=== PATIENT | male | born 1970 | race Caucasian/White ===

== ENCOUNTER 2020-01-07 06:58 | Day surgery (SDC) | payer OTHER ==
[~2020-01-07] VITALS: Ht 185.4 cm; Wt 129.6 kg
[~2020-01-07 06:58] MED LIST: CENTRUM SILVER1 EAC2 PO; LOSA50 PO; MICROZIDE12.5 M1 PO; Percocet 5-3251 EACH PO; TAMS.4ER PO
--- NOTE | 2020-01-07 08:01 | NUR ---
Ambulatory in Day Surgery History, Chart, Medications and Allergies reviewed before start of procedure.Patient confirms NPO status and agrees with scheduled surgery. Patient reports completing Chlorhexadine shower X2 prior to admission to hospital.Lungs clear T/O to Auscultation. Patient States Post-Procedure ride home has been arranged WITH .
--- NOTE | 2020-01-07 09:13 | NUR ---
REPORT GIVEN TO SERGIO REYNAGA
--- NOTE | 2020-01-07 12:06 | NUR ---
DR MCKEON AT BEDSIDE WORKING WITH WOUND VAC. PT TOLERATING PO FLUIDS WELL, DENIES PAIN.
--- NOTE | 2020-01-07 12:28 | NUR ---
Discharge instructions reviewed with patient. Patient verbalizes understanding. Copy given to patient to take home. PER DR MCKEON PT WILL GO TO OFFICE ON TUESDAY. OFFICE TO CALL PT. Discharged via wheelchair to private car for ride home. DRG TO LEFT THIGH C/D/I. PT DENIES PAIN. DRESSED WITH ASSIST FROM . Discharged via wheelchair to private car for ride home.
== END 2020-01-07 12:29 | disposition home or self-care (01) ==
LOC: ORSCMMR 06:58 → ORD 08:30 → ORSCMMR 08:30
PROVIDERS: Surgery
PROC: 0HREX74 Replacement of Left Lower Arm Skin with Autologous Tissue Substitute, Partial Thickness, External Approach (ICD-10-PCS; principal; 2020-01-07 08:30)
DX: C43.62 Malignant melanoma of left upper limb, including shoulder (principal); I10 Essential (primary) hypertension; K21.9 Gastro-esophageal reflux disease without esophagitis; E66.01 Morbid (severe) obesity due to excess calories; Z68.37 Body mass index [BMI] 37.0-37.9, adult; Z79.899 Other long term (current) drug therapy
CPT/HCPCS: J0690; J1100; J1885; J2250; J2405; J2704; J3010; J7120

== ENCOUNTER 2020-11-10 06:12 | Day surgery (SDC) | payer OTHER ==
[~2020-11-10] VITALS: Ht 185.4 cm; Wt 136.9 kg
[~2020-11-10 06:12] MED LIST changes: +Acerola C500 MG PO; +DEPO-TESTO200 MG/1 M IM; +FISH OIL PO; +VITAMIN D310 MC4 PO
--- NOTE | 2020-11-10 09:50 | NUR ---
Discharge instructions reviewed with patient. Patient verbalizes understanding. Copy given to patient to take home. Patient States Post-Procedure ride home has been arranged. Discharged via wheelchair to private car for ride home. PT GIVEN DC INSTRUCTIONS AND WRITTEN RX FOR NORCO 5/325 #10 PT DENIES NEEDING ANYTHING FOR PAIN AT THIS TIME
== END 2020-11-10 22:52 | disposition home or self-care (01) ==
LOC: ORSCMMR 06:12 → ORD 07:30 → ORSCMMR 07:30
PROVIDERS: Surgery
PROC: 0WUF0JZ Supplement Abdominal Wall with Synthetic Substitute, Open Approach (ICD-10-PCS; principal; 2020-11-10 07:30)
DX: K42.9 Umbilical hernia without obstruction or gangrene (principal); K21.9 Gastro-esophageal reflux disease without esophagitis; E66.01 Morbid (severe) obesity due to excess calories; Z68.39 Body mass index [BMI] 39.0-39.9, adult; I10 Essential (primary) hypertension; Z79.899 Other long term (current) drug therapy
CPT/HCPCS: C1781; J0461; J0690; J1100; J2250; J2370; J2405; J2704; J3010; J7120

== ENCOUNTER → 2021-02-24 | Outpatient (CLI) | payer OTHER | END | disposition home or self-care (01) | LOC: LAB 11:44 → LAB SHORT 11:44 | DX: D48.5 Neoplasm of uncertain behavior of skin (principal) | CPT/HCPCS: 88305 ==

== ENCOUNTER 2021-08-13 09:19 | Emergency (ER) | payer OTHER ==
[~2021-08-13] VITALS: Ht 185.4 cm; Wt 139.7 kg
[2021-08-13 11:10] LABS: BASOPHILS ABSOLUTE AUTO 0.05 K/mm3 (0.00-0.23); BASOPHILS PERCENT AUTO 1 % (0-2); EOSINOPHILS ABSOLUTE AUTO 0.05 K/mm3 (0.00-0.68); EOSINOPHILS PERCENT AUTO 1 % (0-6); Hematocrit 48.7 % (37.0-53.0); Hemoglobin 17.4 g/dL (13.5-17.5); IMMATURE GRAN ABSOLUTE AUTO 0.03 K/mm3 (0.00-0.10); IMMATURE GRAN PERCENT AUTO 0 % (0-1); LYMPHOCYTES ABSOLUTE AUTO 1.21 K/mm3 (0.84-5.20); LYMPHOCYTES PERCENT AUTO 14 % (21-46); MONOCYTES ABSOLUTE AUTO 0.77 K/mm3 (0.16-1.47); MONOCYTES PERCENT AUTO 9 % (4-13); Mean Corpuscular HGB 29.8 pg (26.0-34.0); Mean Corpuscular HGB Conc 35.7 g/dL (31.5-36.5); Mean Corpuscular Volume 84 fL (80-100); Mean Platelet Volume 10.8 fL (9.1-12.4); NEUTROPHILS ABSOLUTE AUTO 6.69 K/mm3 (1.96-9.15); NEUTROPHILS PERCENT AUTO 76 % (41-73); Platelet Count 253 K/mm3 (150-400); RDW Coefficient Variation 13.5 % (11.7-14.2); RDW Standard Deviation 40.9 fL (35.1-46.3); Red Blood Cell Count 5.83 M/mm3 (4.30-5.90)
[2021-08-13 11:23] LABS: Alanine Aminotransfer (ALT/SGP 20 U/L (12-78); Albumin, Blood 3.7 g/dL (3.4-5.0); Albumin/Globulin Ratio 1.3 (0.8-1.8); Alk Phos 36 U/L (50-136); Anion Gap 7 mmol/L (6-16); Aspartate Aminotrans (AST/SGOT 22 U/L (12-37); Bilirubin, Total 0.8 mg/dL (0.1-1.0); Blood Urea Nitrogen 14 mg/dL (8-24); Bun/Creatinine Ratio 13.1 (12.0-20.0); CO2, Blood 26 mmol/L (21-32); Calcium, Blood 8.4 mg/dL (8.5-10.1); Chloride, Blood 106 mmol/L (98-108); Creatinine, Blood 1.07 mg/dL (0.60-1.20); Globulin, Blood 2.9 g/dL (2.2-4.0); Glomerular Filtration Rate >60 (60-); Glucose, Blood 111 mg/dL (70-99); Magnesium, Blood 2.3 mg/dL (1.6-2.4); Sodium, Blood 139 mmol/L (136-145); Total Protein, Blood 6.6 g/dL (6.4-8.2)
[2021-08-13] MEDS ORDERED: Ativan1 MG PO ×4 (12:36→12:46)
== END 2021-08-13 13:00 | disposition home or self-care (01) ==
LOC: ER 09:19
PROVIDERS: Physician Assistant
DX: F41.0 Panic disorder [episodic paroxysmal anxiety] (principal); Z79.899 Other long term (current) drug therapy
CPT/HCPCS: 71046; 80053; 83735; 84484; 85025; 85379; 93005; 93010; 99284-25; A9270

== ENCOUNTER → 2021-11-09 | Outpatient (CLI) | payer OTHER ==
[~2021-11-09] MED LIST changes: +Ativan1 MG PO
== END | disposition home or self-care (01) ==
LOC: PLD 11:00 → LAB SHORT 11:00
DX: L81.4 Other melanin hyperpigmentation (principal)
CPT/HCPCS: 88305

== ENCOUNTER → 2022-11-23 | Outpatient (CLI) | payer OTHER | END | disposition home or self-care (01) | LOC: LAB SHORT 11:52 → PLD 11:52 → LAB 11:52 | DX: D22.5 Melanocytic nevi of trunk (principal); L91.8 Other hypertrophic disorders of the skin | CPT/HCPCS: 88305 ==

== ENCOUNTER → 2023-08-15 | Outpatient (CLI) | payer OTHER | END | disposition home or self-care (01) | LOC: LAB SHORT 11:11 → LAB 11:11 | DX: L57.0 Actinic keratosis (principal) | CPT/HCPCS: 88305 ==

== ENCOUNTER 2024-05-29 05:59 | Day surgery (SDC) | payer OTHER ==
[~2024-05-29] VITALS: Ht 185.4 cm; Wt 153.7 kg
[~2024-05-29 05:59] MED LIST changes: +Celexa20 MG PO; +Crestor40 MG PO; +HYDCHL25 PO; +propofoL 50 ML IV ONE
[2024-05-29] MEDS ORDERED: Lactated Ringer's 1,000 ML IV SCH (06:30)
--- NOTE | 2024-05-29 06:38 | NUR ---
Ambulatory in Day SurgeryPre-Op teaching done. Pt verbalizes understanding. History, Chart, Medications and Allergies reviewed before start of procedure.Patient confirms NPO status and agrees with scheduled surgery. Patient States Post-Procedure ride home has been arranged.
[2024-05-29 06:51] VITALS: BP 154/81
--- NOTE | 2024-05-29 07:35 | NUR ---
05/29/24 0735 Kareem Bejarano MONITOR INTACT WITH CONTINUOUS PULSE OXIMETRY, CONTINUOUS END TITAL CO2, AND INTERMITTENT BLOOD PRESSURE. History, Chart, Medications and Allergies reviewed before start of procedure. 3-LEAD EKG REVIEWED WITH PHYSICIAN PRIOR TO START OF PROCEDURE. O2 VIA POM INTACT THROUGHOUT SEDATION/PROCEDURE.
[2024-05-29 08:03] VITALS: BP 160/89
[2024-05-29 08:13] VITALS: BP 135/88
--- NOTE | 2024-05-29 08:24 | NUR ---
0815 Discharge instructions reviewed with patient. Patient verbalizes understanding. Copy given to patient to take home. Patient reports no c/o and denies post-procedure pain. Dr. Jacobs visisted patient at bedside and gave results of procedure and instructed patient that patient did not need to keep follow-up appointment and to repeat colonoscopy in three years. Patient reports to drive home and do driving for next 24 hours.
--- NOTE | 2024-05-29 08:27 | NUR ---
0820- UP TO DRESS. GAIT STEADY.
== END 2024-05-29 08:23 | disposition home or self-care (01) ==
LOC: ORSCMMR 05:59 → ORD 07:30 → ORSCMMR 07:30
PROVIDERS: Internal Medicine Gastroenterology
PROC: 0DBP8ZX Excision of Rectum, Via Natural or Artificial Opening Endoscopic, Diagnostic (ICD-10-PCS; principal; 2024-05-29 07:30)
DX: Z12.11 Encounter for screening for malignant neoplasm of colon (principal); D12.8 Benign neoplasm of rectum; I10 Essential (primary) hypertension; E78.00 Pure hypercholesterolemia, unspecified; G47.30 Sleep apnea, unspecified; E03.9 Hypothyroidism, unspecified; K21.9 Gastro-esophageal reflux disease without esophagitis; E66.01 Morbid (severe) obesity due to excess calories; Z68.41 Body mass index [BMI] 40.0-44.9, adult; Z79.899 Other long term (current) drug therapy
CPT/HCPCS: 88305; J2704; J7120